=== PATIENT | female | born 1965 | race Two or more races ===

== ENCOUNTER 2017-10-27 09:02 | Emergency (ER) | payer OTHER ==
[~2017-10-27] VITALS: Ht 165.1 cm; Wt 122.5 kg
[2017-10-27] MEDS ORDERED: SODIUM CHLORIDE 0.9% 1,000 ML IV ONE (09:35)
[2017-10-27 09:57] LABS: Urine Amorphous Crystal FEW /hpf (None Seen); Urine Bacteria NONE SEEN /hpf (None Seen); Urine Blood Negative /uL (Negative); Urine Mucus FEW (None Seen); Urine Specific Gravity 1.017 (1.001-1.035); Urine WBC 2 /hpf (0 - 5)
[2017-10-27] MEDS ORDERED: CLOPIDOGREL BISULFATE 75 MG TAB PO ONE (10:15)
[2017-10-27 10:29] LABS: Basophils # (auto) 0.1 uL; Basophils % (auto) 0.9 % (0.0-2.0); Eosinophils # (auto) 0.2 uL; Eosinophils % (auto) 2.3 % (0.0-7.0); Hematocrit 43.4 % (36.0-46.0); Hemoglobin 14.3 g/dL (12.2-16.2); Lymphocytes # (auto) 1.7 uL; Lymphocytes % (auto) 26.5 % (10.0-50.0); Mean Corpuscular Hemoglobin 28.5 pg (28.0-32.0); Mean Corpuscular Hgb Conc. 33.1 g/dL (32.0-36.0); Mean Corpuscular Volume 86.1 fL (80.0-100.0); Monocytes # (auto) 0.4 uL; Monocytes % (auto) 6.9 % (0.0-12.0); Neutrophils # (auto) 4.1 uL; Neutrophils % (auto) 63.4 % (37.0-80.0); Nucleated Red Blood Cells % 0.1 %; Platelet Count (auto) 289 10^3/uL (140-450); Red Blood Cells 5.04 10^6/uL (4.0-5.20); Red Cell Distribution Width 14.6 % (11.8-14.3); White Blood Cell 6.5 10^3/uL (4.4-10.8)
[2017-10-27 10:37] LABS: INR 0.93 (0.9-1.15); Partial Thromboplastin Time 25.2 sec (23.78-33.04)
[2017-10-27 10:52] LABS: Alanine Aminotransferase 25 U/L (13-56); Albumin 3.8 g/dL (3.4-5.0); Alkaline Phosphatase 113 U/L (45-117); Anion Gap 7 (5-15); Aspartate Aminotransferase 15 U/L (15-37); BUN/Creatinine Ratio 18.5; Bilirubin, Total 0.5 mg/dL (0.2-1.0); Blood Urea Nitrogen 15 mg/dL (7-18); Calcium 8.6 mg/dL (8.5-10.1); Carbon Dioxide 27 mmol/L (21-32); Chloride 107 mmol/L (98-107); GFR African American 95 mL/min; GFR Non-African American 79 mL/min; Glucose 107 mg/dL (74-106); Potassium 3.5 mmol/L (3.5-5.1); Sodium 141 mmol/L (136-145); Total Protein 8.8 g/dL (6.4-8.2)
[2017-10-27] MEDS ORDERED: LORazepam 2MG/ML-1ML VIAL IV ONE (11:45)
[2017-10-27 21:27] VITALS: BP 146/85
== END 2017-10-27 21:42 | disposition short-term general hospital (02) ==
LOC: ER 09:06
DX: I63.9 Cerebral infarction, unspecified (principal)
CPT/HCPCS: 36415; 70450; 71045; 80053; 81001; 82962; 84484; 85025; 85610; 85730; 93005; 96361; 96374; 99285; J2060; J7030

== ENCOUNTER 2024-12-23 06:16 | Emergency (ER) | payer OTHER, MEDICAID ==
[~2024-12-23] VITALS: Ht 165.1 cm; Wt 90.9 kg
--- NOTE | 2024-12-23 06:24 | ED.PDOC ---
GI ASSESSMENT HPI Comments HPI: Alex 59 year old female presents to the ED via EMS with a chief complaint of diffuse abdominal pain associated with nausea, and vomiting that began last night around 10pm. Patient describes the pain as constant and sharp, and notes that it is similar to a bowel blockage she was diagnosed with three months prior. Following the onset of symptoms, she took Dulcolax, and this morning she had a bowel movement consisting of diarrhea, with no blood noted. The patient denies any hematemesis, fever, or chills. Initial Vitals BP: 158/79 HR:58 RR: 19 O2: 98% Temp: 97.6 F Past Medical History: CVA, HTN and bowel blockage x 3 months ago (August 2024) Past Surgical History: denies Social History: Denies ETOH, smoking, and drug use. Allergies: Denies HPI: Poor Historian. REVIEW OF SYSTEMS: CONSTITUTIONAL: Denies acute: fever, diaphoresis, chills, generalized weakness. HEAD: Denies acute: headache, photophobia Eyes: Denies acute: Double vision, vision loss, eye pain, eye discharge. EARS: Denies acute: tinnitus, hearing loss, ear discharge, ear pain, THROAT: Denies acute: sore throat, swelling, difficulty swallowing , pain with swallowing, change in voice. NECK: Denies acute: neck pain, neck swelling, stiff neck. HEART: Denies acute : chest pain, palpitations, LUNGS: Denies acute: SOB, wheezing, cough, hemoptysis ABDOMEN: Denies acute: melena , hematemesis, hematochezia SKIN: Denies acute: rash, redness, lesions, itchiness. EXTREMITIES: Denies acute: calf pain, numbness, tingling, weakness, denies pain in extremity. Denies acute: Low back pain. Neuro: Denies acute: focal neurological deficit, motor or sensory focal neurological deficit, tremors, seizure like activity, confusion, dizziness, change in mental status, loss of bowel or bladder function, cauda equina like symptoms. : Denies acute: dysuria, hematuria, flank pain, increase in urinary frequency. PSYCH: Denies acute: hallucination, suicidal ideation, homicidal ideation. FEMALE: Denies acute: abnormal vaginal bleeding, foul odor, unusual discharge. PHYSICAL EXAM: General: ----moderate----acute distress, awake and alert. Head: normocephalic, atraumatic. Neck: supple, trachea is midline, no swelling. Throat: Normal phonation. Eyes:, no erythema, no purulent discharge, no proptosis, no icterus. Heart: regular rate, regular rhythm, no significant murmur appreciated. Lungs: no apparent respiratory distress, Able to speak in full sentences. No wheezing, no rhonchi, no crackles. No stridors Clear to auscultation bilaterally. Abdomen: Generalized tender to palpation, non distended, soft, no guarding, no rebound, + bowel sounds. Obese Neuro: Awake, Alert, oriented to name, self, situation, follows commands GCS=15. Speech is normal. Skin: no petechia, no purpura, no cyanosis, non-pale, not jaundice. Lower extremities: --no - Pitting edema no deformity, no focal swelling, no calf TTP. Makes eye contact. moves all four extremities. Face: no apparent facial droop. ED COURSE: DISCLAIMER: This medical document was created using an electronic medical record system with voice recognition software and computerized dictation system. Although this document has been carefully reviewed, there might still be some phonetic and typographical errors. Occasional wrong-word or "sound-alike" substitutions may have occurred due to the inherent limitations of voice recognition software. These areas are purely typographical due to imperfections of the software programs and do not reflect any compromise in the patient's medical care. Please read the chart carefully and recognize, using context, where these substitutions have occurred. Time Seen by MD: 06:20 Reviewed Notes: Allergies Allergies: Coded Allergies: NO KNOWN ALLERGIES (Unverified , 10/27/17) Information Source: Patient, Emergency Med Personnel Mode of Arrival: EMS Timing: Hours Duration: Since onset Past Medical History PAST MEDICAL HISTORY: CVA, HTN Past Medical History (Other): bowel obstruction x 3 months ago Surgical History: Denies all surgeries POCKET SETTER LOCKSTITCH History: No Pertinent POCKET SETTER LOCKSTITCH History, Uterine Fibroids Family History Family History: Unknown Social History Smoker: Non-Smoker Alcohol: Denies ETOH Use Drugs: Denies Drug Use Lives In: Home Was a procedure done? Was a procedure done?: No GI differential Dx Differential Diagnosis: Bowel Obstruction, Diverticular disease, Esophageal rupture, Esophagitis, Ovarian cyst/torsion, Trauma intraabdominal X-Ray, Labs, Meds, VS Vital Signs Date Time Temp Pulse Resp B/P (MAP) Pulse Ox O2 Delivery O2 Flow Rate FiO2 12/23/24 08:37 99.5 51 18 145/54 (84) 95 99.5 12/23/24 06:20 97.6 58 19 158/79 98 97.6 Lab Test 12/23/24 08:30 12/23/24 06:29 Range/Units Urine Color Light-yellow Yellow Urine Clarity Clear Clear Urine pH 7.0 5.0-9.0 Urine Specific [place] 1.018 1.001-1.035 Urine Protein Negative Negative Urine Ketones 2+ H Negative Urine Blood 1+ H Negative /uL Urine Nitrite Negative Negative Urine Bilirubin Negative Negative Urine Urobilinogen Normal Negative mg/dL Urine Leukocyte Esterase 2+ Negative /uL Urine RBC 4 0 - 4 /hpf Urine Microscopic WBC 10 H 0-5 /HPF Urine Squamous Epithelial Cells Few <5 /hpf Urine Bacteria None seen None Seen /hpf Urine Mucus Few None Seen Urine Glucose 3+ H Normal mg/dL White Blood Count 12.8 H 4.4-10.8 10^3/uL Red Blood Count 4.23 4.0-5.20 10^6/uL Hemoglobin 12.8 12.2-16.2 g/dL Hematocrit 37.9 36.0-46.0 % Mean Corpuscular Volume 89.7 80.0-100.0 fL Mean Corpuscular Hemoglobin 30.2 28.0-32.0 pg Mean Corpuscular Hemoglobin Concent 33.6 32.0-36.0 g/dL Red Cell Distribution Width 14.0 11.8-14.3 % Platelet Count 301 140-450 10^3/uL Mean Platelet Volume 8.9 6.9-10.8 fL Neutrophils (%) (Auto) 85.3 H 37.0-80.0 % Lymphocytes (%) (Auto) 10.7 10.0-50.0 % Monocytes (%) (Auto) 3.1 0.0-12.0 % Eosinophils (%) (Auto) 0.5 0.0-7.0 % Basophils (%) (Auto) 0.4 0.0-2.0 % Neutrophils # (Auto) 11.0 H 1.6-8.6 10 ^3/uL Lymphocytes # (Auto) 1.4 0.4-5.4 10 ^3/uL Monocytes # (Auto) 0.4 0-1.3 10 ^3/uL Eosinophils # (Auto) 0.1 0-0.8 10 ^3/uL Basophils # (Auto) 0 0-0.2 10 ^3/uL Nucleated Red Blood Cells 0.0 % Sodium Level 141 136-145 mmol/L Potassium Level 2.7 L 3.5-5.1 mmol/L Chloride Level 103 98-107 mmol/L Carbon Dioxide Level 27 20-31 mmol/L Anion Gap 11 5-15 Blood Urea Nitrogen 27 H 9-23 mg/dL Creatinine 1.09 H 0.550-1.02 mg/dL Glomerular Filtration Rate Calc 58 >90 mL/min BUN/Creatinine Ratio 24.8 H 10.0-20.0 Serum Glucose 148 H 74-106 mg/dL Lactic Acid Level 1.4 0.4-2.0 mmol/L Calcium Level 9.1 8.7-10.4 mg/dL Total Bilirubin 0.6 0.2-1.0 mg/dL Aspartate Amino Transferase (AST) 20 13-40 U/L Alanine Aminotransferase (ALT) 16 7-40 U/L Alkaline Phosphatase 91 46-116 U/L Troponin I High Sensitivity 5 </=34 ng/L Total Protein 7.1 5.7-8.2 g/dL Albumin 4.1 3.2-4.8 g/dL Lipase 30 12-53 U/L Current Medications Medications (Trade) Dose Ordered Sig/Case Route Start Time Stop Time Status Last Admin Sodium Chloride 1,000 ml @ 1,000 mls/hr Q1H ONCE IV 12/23/24 06:30 12/23/24 07:29 DC 12/23/24 06:30 [place] [address] Ph: [phone] DIAGNOSTIC IMAGING Diagnostic Imaging Report : [id number] Signed PATIENT: HIMANSHU PATRICIA ACCT: [id number] UNIT: [id number] : 1965 LOC: ER ROOM / BED: / AGE / SEX: 59 / F ADM STATUS: REG ER SERVICE 2 ORDERING PHYSICIAN: PENG FLORES DO PROCEDURE(s): ABPL - CT AB PEL WO CON-NO ORAL OR IV REASON: abd pain n/v/ ORDER NUMBER(s): [id number], ACCESSION NUMBER(s): [id number] Indication: abd pain n/v/ Technique: CT axial images of the abdomen and pelvis are obtained without co ntrast. Coronal and sagittal reformats were obtained. Radiation Dose Information: CTDI volume is 23.59 mGy. Dose-length product is 1333.94 mGy*cm Comparison: None FINDINGS: There is limited interpretation of the abdomen and pelvis without administration of intravenous contrast. Lung bases demonstrate atelectasis. Adrenal glands, spleen and pancreas unremarkable in shape. Heterogeneous mass within the right hepatic lobe measuring 6.8 x 5.8 cm Mild gallbladder wall/pericholecystic edema. No hydronephrosis / nephrolithiasis. Stomach is partially distended. Small bowel loops are normal in caliber. Moderate volume stool throughout the colon. No secondary signs appendicitis. Bladder partially distended. Partially calcified uterine leiomyoma measuring 2.6 cm. No free pelvic fluid. No inguinal lymphadenopathy. Dgyb-ok-[id number] bilateral sacroiliac degenerative joint disease. There is tlzw-bu-atkiscvv thoracolumbar degenerative disc disease. IMPRESSION: Limited evaluation without contrast. Large heterogeneous right hepatic lobe mass measuring 6.8 x 5.8 cm. Recommend multiphasic MRI abdomen with and without contrast to further characterize and surgical/ oncology consultation. Mild gallbladder wall edema / thickening with gallbladder distention. Recommend abdominal ultrasound to characterize as well as HIDA scan to exclude cholecystitis. Other findings as described. ATED BY: DANIELLE MCLEOD MD DICTATED DATE/TIME: 12/23/24 08 SIGNED BY: DANIELLE MCLEOD MD SIGNED DATE/TIME: 12/23/24 08 CC: Time of 1ST Reevaluation: 06:39 Reevaluation 1ST: Unchanged Patient Education/Counseling: Diagnosis, Treatment Family Education/Counseling: No Family Present Critical Care Note Critical Care Time?: No Stability Stability form required: No I personally scribed for PENG FLORES DO ([email or web address]) on 12/23/24 at 06:24. Electronically submitted by Tiki Lopez ([facility]). I personally scribed for PENG FLORES DO ([facility]) on 12/23/24 at 06:45. Electronically submitted by Tiki Lopez ([facility]). I personally scribed for PENG FLORES DO ([facility]) on 12/23/24 at 06:52. Electronically submitted by Tiki Lopez ([facility]). I personally scribed for PENG FLORES DO ([facility]) on 12/23/24 at 08:40. Electronically submitted by Tiki Lopez ([facility]). PENG FLORES DO Dec 23, 2024 06:24
[2024-12-23] MEDS: SODIUM CHLORIDE 0.9% 1,000 ML IV ONE (06:30)
[2024-12-23 06:55] LABS: Hematocrit 37.9 % (36.0-46.0); Hemoglobin 12.8 g/dL (12.2-16.2); Mean Corpuscular Hemoglobin 30.2 pg (28.0-32.0); Mean Corpuscular Volume 89.7 fL (80.0-100.0); Nucleated Red Blood Cells % 0.0 %
[2024-12-23 06:59] LABS: Alanine Aminotransferase 16 U/L (7-40); Albumin 4.1 g/dL (3.2-4.8); Alkaline Phosphatase 91 U/L (46-116); Anion Gap 11 (5-15); BUN/Creatinine Ratio 24.8 (10.0-20.0); Calcium 9.1 mg/dL (8.7-10.4); Carbon Dioxide 27 mmol/L (20-31); Chloride 103 mmol/L (98-107); Lipase 30 U/L (12-53); Sodium 141 mmol/L (136-145); Total Protein 7.1 g/dL (5.7-8.2)
[2024-12-23 07:00] LABS: Bilirubin, Total 0.6 mg/dL (0.2-1.0)
[2024-12-23 07:02] LABS: Blood Urea Nitrogen 27 mg/dL (9-23); Glucose 148 mg/dL (74-106); Potassium 2.7 mmol/L (3.5-5.1)
--- NOTE | 2024-12-23 08:06 | DVH ---
Indication: abd pain n/v/ Technique: CT axial images of the abdomen and pelvis are obtained without contrast. Coronal and sagit mar reformats were obtained. Radiation Dose Information: CTDI volume is 23.59 mGy. Dose-length product is 1333.94 mGy*cm Comparison: None FINDINGS: There is limited interpretation of the abdomen and pelvis without administration of intravenous contr ast. Lung bases demonstrate atelectasis. Adrenal glands, spleen and pancreas unremarkable in shape. Heterogeneous mass within the right hepatic lobe measuring 6.8 x 5.8 cm Mild gallbladder wall/pericholecystic edema. No hydronephrosis / nephrolithiasis. Stomach is partially distended. Small bowel loops are normal in caliber. Moderate volume stool throughout the colon. No secondary signs appendicitis. Bladder partially distended. Partially calcified uterine leiomyoma measuring 2.6 cm. No free pelvic fluid. No inguinal lymphadenopathy. [id number]-io-[id number] bilateral sacroiliac degenerative joint disease. There is vnrf-hm-yuyfdzzs thoracolu mbar degenerative disc disease. IMPRESSION: Limited evaluation without contrast. Large heterogeneous right hepatic lobe mass measuring 6.8 x 5.8 cm. Recommend multiphasic MRI abdome n with and without contrast to further characterize and surgical/ oncology consultation. Mild gallbladder wall edema / thickening with gallbladder distention. Recommend abdominal ultrasound to characterize as well as HIDA scan to exclude cholecystitis. Other findings as described.
[2024-12-23 08:37] VITALS: BP 145/54; PULSE 51; RESP 18; TEMP 99.5; O2SAT 95
[2024-12-23 10:42] LABS: Urine Protein, UAD Negative (Negative)
[2024-12-23] MEDS: HYDROcodone-ACET 5/325MG TAB PO ONE (11:56)
--- NOTE | 2024-12-23 12:32 | DVH ---
ULTRASOUND ABDOMEN, LIMITED RIGHT UPPER QUADRANT: REASON FOR EXAM: Right upper quadrant pain TECHNIQUE: Real-time sector scans in the transverse and longitudinal planes were obtained through th e right upper quadrant of the abdomen. FINDINGS: The liver is enlarged at 19.1 cm in length. The liver is diffusely echogenic. There is he patopetal flow in the portal vein. There is a 5.5 x 5.5 x 4.0 cm echogenic mass in the posterior righ t lobe of the liver. There is no intrahepatic nor extrahepatic biliary ductal dilatation. The commo n bile duct measures 4 mm. There are a few small shadowing stones within the gallbladder. There is no gallbladder wall thickening. There is trace pericholecystic edema. There is no sonographic Leigh' s sign. The visualized portion of the pancreas is unremarkable. The right kidney measures 11.3 cm. No hydronephrosis or nephrolithiasis is identified. There is no evidence of right renal mass or cyst. The visualized portions of the abdominal aorta demonstrate no evidence of aneurysmal dilatation. The visualized inferior vena cava is unremarkable. There is no free fluid identified in the right upper quadrant. IMPRESSION: There is a 5.5 cm echogenic mass in the posterior right lobe of the liver with imaging characteristic s most suggestive of a hemangioma. Recommend MRI without and with contrast for further evaluation. ltiphase contrast-enhanced liver CT could also be performed. Hepatomegaly. The liver is diffusely echogenic which may be secondary to steatosis or another diffuse hepatic process. Correlate clinically and with liver function tests. Gallstones. Pericholecystic edema. These findings would be consistent with acute cholecystitis. Corre late clinically with history and physical exam. If clinically indicated, nuclear medicine HIDA scan c an also be performed.
[2024-12-23 16:35] LABS: Amphetamine Screen, Urine Neg (NEGATIVE); Barbiturate Scree,Urine Neg (NEGATIVE); Benzodiazephine Screen, Urine Neg (NEGATIVE); Cannabinoid Screen, Urine Neg (NEGATIVE); Cocaine Screen, Urine Neg (NEGATIVE); Opiate Scree,Urine Neg (NEGATIVE); Phencyclidine Screen, Urine Neg (NEGATIVE)
== END 2024-12-23 12:45 | disposition left against medical advice (07) ==
LOC: EDUNIT# 06:16 → ER 06:16 → EDBD 06:16 → ER 12:45
DX: R10.84 Generalized abdominal pain (principal); R19.7 Diarrhea, unspecified; I10 Essential (primary) hypertension; Z86.73 Personal history of transient ischemic attack (TIA), and cerebral infarction without residual deficits; Z98.890 Other specified postprocedural states
CPT/HCPCS: 36415; 74176; 76705; 80053; 80307; 81001; 83605; 83690; 84484; 85025; 96360; 99284; J7030